=== PATIENT | male | born 1940 | race Caucasian/White ===

== ENCOUNTER 2018-10-27 14:14 | Outpatient (CLI) | payer MEDICARE ==
--- NOTE | 2018-10-27 16:43 | CARDIAC PROCEDURE NOTE ---
DATE OF SERVICE: 10/27/2018 Physician: Anjelica Polanco MD, [facility] INDICATION: Arrhythmia. CARDIAC RISK FACTORS 1. Male gender. 2. Advanced age. 3. Smoker. PROCEDURE: After signing informed consent, the patient underwent a Ezio protocol treadmill stress test. No imaging was ordered with this test. RESTING HEART RATE: 76. Peak heart rate: 109 and then briefly touched 136 (95% predicted maximum heart rate for age). Resting blood pressure: 110/78. Peak blood pressure: 150/80. In recovery, the blood pressure initially went up to 152/82 and then returned to baseline. The patient exercised for 3 minutes and 41 seconds on a Ezio protocol stress test. He achieved a peak heart rate of 136 (95% PMHR) and 5.45 METS. The patient had mild shortness of breath at peak, no chest pain. There were PACs and PVCs seen pretesting and during testing, which were asymptomatic. RESTING EKG: Normal sinus rhythm, possible Q-waves in II, III, aVF, occasional PVCs. EKG AT [facility]: No new ST segment or T-wave changes. SUMMARY 1. Fair exercise tolerance. 2. Abnormal resting EKG. 3. No ischemic changes by EKG criteria on this treadmill stress test, at an adequate level of stress. 4. No imaging was ordered with this test. 5. Consider checking for resting a wall motion abnormality with Echo, since his resting EKG shows inferior Q-waves. cc: DAVID Anthony TD: 10/27/2018 15:50 MTDD
== END 2018-10-27 14:15 | disposition home or self-care (01) ==
LOC: DI 14:14
PROVIDERS: ATTEND Nurse Practitioner Family
DX: I49.9 Cardiac arrhythmia, unspecified (principal); Z87.891 Personal history of nicotine dependence
CPT/HCPCS: 93017